=== PATIENT | male | born 1960 | race Caucasian/White ===

== ENCOUNTER 2023-01-22 13:12 | Outpatient (OUT) | payer OTHER, SELFPAY ==
[2023-01-22 13:28] LABS: Estimated GFR (African America >60 (>=60); Estimated GFR (Non-African Ame >60 (>=60)
--- NOTE | 2023-01-22 13:28 | CT_ITS ---
The [address] [address] Patient Name: GABE BELTRE MRN: [id number] date: 1960 Sex: M Assigned Patient Location: CT Current Patient Location: CT Accession/Order Number: [id number] Exam Date: 01/22/2023 13:40 Report Date: 01/22/2023 14:32 At the request of: THOAMS COSTA Procedure: CT chest w con EXAM: CT chest w con HISTORY: Lung Nodule R91.1 COMPARISON: 12/18/2021 TECHNIQUE: Axial CT images were obtained of the chest with intravenous contrast. Multiplanar reconstructions were performed. CHEST FINDINGS: Lungs/Pleura: The lungs are clear. A few punctate pulmonary nodules are present in the left lower lobe which appear stable from the previous exam. No pleural effusion or pneumothorax. Cardiovascular: The heart is normal in size. No coronary artery calcifications identified. The aorta and pulmonary arteries are unremarkable. Pericardium: No effusion. Mediastinum: Unremarkable. Lymph Nodes: No lymph node enlargement by CT size criteria. Bones: No acute osseous abnormality. Multilevel degenerative changes are present with prominent anterior enthesophytes at the mid thoracic spine. Soft tissues: Unremarkable. Upper Abdomen: Prior cholecystectomy. A right renal cyst is noted measuring 3.6 cm. A duodenal diverticulum is present measuring 3.[address]/CT chest w con IMPRESSION: 1. No acute abnormality of the chest. 2. Stable punctate pulmonary nodules. Electronically authenticated by: DOMINIQUE SIERRA Date: 01/22/2023 14:32
== END 2023-01-22 13:13 | disposition home or self-care (01) ==
LOC: CT 13:13
PROVIDERS: PCP Family Medicine; Visit Provider Family Medicine
DX: R91.1 Solitary pulmonary nodule (principal)
CPT/HCPCS: 36415; 71260; 82565; Q9967

== ENCOUNTER 2023-07-31 10:32 | Outpatient (OUT) | payer OTHER, SELFPAY ==
[2023-07-31 11:25] LABS: Estimated Average Glucose 117 mg/dL; Glycohemoglobin A1C 5.7 % (4.5-6.2)
[2023-07-31 12:09] LABS: Prostate Specific Antigen Scrn 1.41 ng/mL (<=4.00)
[2023-07-31 12:13] LABS: Alanine Aminotransferase 28 U/L (16-63); Albumin Globulin Ratio 1.1; Albumin Level 3.8 g/dL (3.4-5.0); Alkaline Phosphatase 75 U/L (46-116); Anion Gap 10.7; Aspartate Amino Transferase 20 U/L (15-37); BUN Creatinine Ratio 12.5; Bilirubin Total 0.7 mg/dL (0.2-1.0); Calcium 9.5 mg/dL (8.5-10.1); Carbon Dioxide 28.2 mmol/L (21.0-32.0); Chloride 104 mmol/L (98-107); Cholesterol 194 mg/dL (<=200); Estimated GFR (African America >60 (>=60); Estimated GFR (Non-African Ame >60 (>=60); Free T3 3.12 pg/mL (2.18-3.98); Globulin 3.4 g/dL; Glucose 103 mg/dL (74-106); HDL Cholesterol 49 mg/dL (40-60); Potassium 3.9 mmol/L (3.5-5.1); Sodium 139 mmol/L (136-145); Thyroid Stimulating Hormone 2.392 uIU/mL (0.358-3.740); Total Protein 7.2 g/dL (6.4-8.2); Triglycerides 125 mg/dL (<=150)
[2023-07-31 13:17] LABS: Basophils Percent Auto 0.5 % (0.2-2.0); Eosinophils Absolute Auto 0.2 10^3/uL (0.0-0.7); Eosinophils Percent Auto 2.6 % (0.9-7.0); Hemoglobin 15.4 g/dL (14.0-18.0); Immature Granulocytes Abs Auto 0.02 10^3/uL (0.00-0.03); Immature Granulocytes Pct Auto 0.2 % (0.0-0.5); Lymphocytes Absolute Auto 2.3 10^3/uL (1.2-3.8); Mean Corpuscular HGB Conc 33.5 g/dL (29.9-35.2); Mean Corpuscular Volume 92.6 fL (80.0-94.0); Mean Platelet Volume 10.6 fL (9.5-13.5); Monocytes Absolute Auto 0.7 10^3/uL (0.3-0.8); Monocytes Percent Auto 7.9 % (1.7-12.0); Neutrophils Absolute Auto 5.2 10^3/uL (1.4-6.5); Neutrophils Percent Auto 61.8 % (43.0-75.0); Platelet Count 258 10^3/uL (150-450); Red Blood Count 4.97 10^6/uL (4.70-6.10); Red Cell Distribution Width 12.4 % (11.0-15.0); White Blood Count 8.5 10^3/uL (4.0-11.0)
[2023-08-01 10:09] LABS: Insulin 8.2 uIU/mL (2.6-24.9)
== END 2023-07-31 10:33 | disposition home or self-care (01) ==
LOC: LAB 10:36
PROVIDERS: PCP Family Medicine; Visit Provider Family Medicine
DX: Z00.00 Encounter for general adult medical examination without abnormal findings (principal); E78.5 Hyperlipidemia, unspecified; R73.09 Other abnormal glucose; Z12.5 Encounter for screening for malignant neoplasm of prostate; Z12.12 Encounter for screening for malignant neoplasm of rectum
CPT/HCPCS: 36415; 80053; 80061; 83036; 83525; 84436; 84443; 84481; 85025; G0103

== ENCOUNTER 2023-08-12 12:56 | Outpatient (OUT) | payer OTHER, SELFPAY ==
--- OUTSIDE RECORDS SUMMARY | 2023-08-12 13:01 | XMS_ITS | CCD ---
Author Organization [facility] Care Team Providers Care Stock Pitcher Name Role Phone DR THOMAS COSTA Consulting Unavailable JULISSA, DR GUZMAN Primary Care Unavailable JULISSA, DR GUZMAN Admitting Unavailable JLUISSA, DR GUZMAN Attending Unavailable JULISSA, DR GUZMAN Consulting Unavailable JULISSA, DR GUZMAN Primary Care Unavailable JULISSA, DR GUZMAN Admitting Unavailable JULISSA, DR GUZMAN Attending Unavailable CATRACHITA, DR RJ Contreras Consulting Unavailable JULISSA, DR GUZMAN Consulting Unavailable JULISSA, DR GUZMAN Primary Care Unavailable JULISSA, DR GUZMAN Admitting Unavailable JULISSA, DR GUZMAN Attending Unavailable Concetta Zelaya Unavailable Allergies Allergy Classification Reported Allergen(s) Allergy Type Date of Onset Reaction(s) Facility (1 source) Penicillins Drug allergy (disorder) 4 [facility] (1 source) Penicillins (Antibiotic) Propensity to adverse reactions [facility] Other Medications Current Medications Medication Drug Class(es) Dates Sig (Normalized) Sig (Original) doxycycline hyclate 100 mg oral tablet (2 sources) Tetracycline-clas s Drug Start: 08-20-2022 take 1 tablet by mouth every twelve hours Doxycycline Hyclate 100 MG 1 tablet Orally Twice a day for 10 day(s) August, Active Start: 02-09-2019 take 1 capsule by [facility] every twelve hours Doxycycline Monohydrate 100 MG 1 capsule Orally every 12 hrs for 10 days Feb, Not-Taking predniSONE 20 mg oral tablet (2 sources) Start: 02-09-2019 take 1 tablet by mouth every twelve hours predniSONE 20 MG 1 tablet Orally bid for 5 day(s) August, Active Completed/Discontinued Medications Medication Drug Class(es) Dates Sig (Normalized) Sig (Original) fluticasone propionate 0.05 mg/actuat metered dose nasal spray (1 source) Corticosteroid Start: 02-09-2019 take 1 spray(s) nasal route once daily Fluticasone Propionate 50 MCG/ACT 1 spray in each nostril Nasally Once a day for 30 day(s) Feb, Not-Taking Problems Problem Classification Problem Date Documented Date Episodic/Chronic Esophageal disorders (1 source) Gastroesophageal reflux disease; Translations: [GERD [Gastroesophageal reflux disease]] Chronic Other lower respiratory disease (4 sources) Solitary pulmonary nodule; Translations: [SOLITARY PULMONARY NODULE] Onset: 12-18-2021 Episodic Other screening for suspected conditions (not mental disorders or infectious disease) (1 source) Encounter for screening for malignant neoplasm of prostate; Translations: [ENC SCREEN MALIG NEOPLASM PROSTATE] Onset: 12-06-2021 Episodic Other upper respiratory infections (1 source) Maxillary sinusitis; Translations: [Chronic maxillary sinusitis] Chronic Other upper respiratory infections (1 source) Acute sinusitis, unspecified Episodic Substance-related disorders (1 source) Nicotine dependence, unspecified, uncomplicated; Translations: [NICOTINE DEPEND UNS UNCOMPLICATED] Onset: 12-23-2021 Chronic Unclassified (1 source) COUGH, UNSPECIFIED; Translations: [COUGH, UNSPECIFIED] Onset: 12-23-2021 Results Test Name Value Interpretation Reference Range Facil ity CT CHEST W CONon 12-18-2021 CT CHEST W CON EXAMINATION: CT CHEST W CON HISTORY: Solitary nodule of lung , cough, smoker COMPARISON: CT chest 12/01/2019 TECHNIQUE: Multi-planar CT images were created with IV contrast. Axial, Coronal, and Sagittal images. Dose reduction techniques were achieved by using automated exposure control and/or adjustment of mA and/or kV according to patient size and/or use of iterative reconstruction technique. FINDINGS: LUNGS: Several 2-5 mm nodules scattered within the lungs, not appreciably changed. No new findings or suspicious nodules. No acute infiltrates. Minimal emphysematous changes. PLEURA: No mass, effusion, or pneumothorax. VASCULATURE: No abnormality. CAREY: No mass or adenopathy. MEDIASTINUM: No mass or adenopathy. CARDIAC: No enlargement, pericardial thickening, or significant calcification. AORTA: No aneurysm or dissection. CHEST WALL: No mass or axillary adenopathy. BONES: No bone lesion or fracture. LIMITED ABDOMEN: Stable benign-appearing right renal cyst. Limited images of the upper abdomen. OTHER: Negative. IMPRESSION: 1. Stable scattered small pulmonary nodules; no overtly suspicious nodules. Consider annual CT chest for surveillance if patient is at increased risk for lung cancer. Electronically authenticated by: RJ ZIJESSEMARCIA Date: 2021-12-18 16:34 Normal [facility] OCC BLD IMMUNO SCREENon 09-0 OCCULT BLOOD Negative Normal NEGATIVE [facility] Comment on above: Performed By: #### O BSCRN #### [facility] [address] [place] [address] Dr. Loraine Bonilla CBC AUTO DIFFon 12-05-2021 BASO # 0.1 103/ul Normal 0.0-0.1 [facility] Comment on above: Performed By: #### C BC #### [facility] [address] [place] [address] Dr. Loraine Bonilla Basophils/100 WBC (Bld) 0.6 % Normal 0.2-2.0 [facility] Comment on above: Performed By: #### C BC #### [facility] [address] [place] [address] Dr. Loraine Bonilla EO # 0.3 103/ul Normal 0.0-0.7 [facility] Comment on above: Performed By: #### C BC #### [facility] [address] [place] [address] Dr. Loraine Bonilla Eosinophils/100 WBC (Bld) 2.7 % Normal 0.9-7.0 [facility] Comment on above: Performed By: #### C BC #### [facility] [address] [place] [address] Dr. Loraine Bonilla Erythrocyte distribution width (RBC) [Ratio] 12.4 % Normal 11.0-15.0 [facility] Comment on above: Performed By: #### C BC #### [facility] [address] [place] [address] Dr. Loraine Bonilla Hematocrit (Bld) [Volume fraction] 47.2 % Normal 42.0-54.0 [facility] Comment on above: Performed By: #### C BC #### [facility] [address] [place] [address] Dr. Loraine Bonilla Hemoglobin (Bld) [Mass/Vol] 15.9 g/dL Normal 14.0-18.0 [facility] Comment on above: Performed By: #### C BC #### [facility] [address] [place] [address] Dr. Loraine Bonilla IG # 0.05 10e3/ul Critically high 0.00-0.03 [facility] Comment on above: Performed By: #### C BC #### [facility] [address] [address] Dr. Loraine Bonilla IG % 0.5 % Normal 0.0-0.5 [facility] Comment on above: Performed By: #### C BC #### [facility] [address] [address] Dr. Loraine Bonilla LYMPH # 2.6 103/ul Normal 1.2-3.8 [facility] Comment on above: Performed By: #### C BC #### [facility] [address] [address] Dr. Loraine Bonilla Lymphocytes/100 WBC (Bld) 23.5 % Normal 20.5-60.0 [facility] Comment on above: Performed By: #### C BC #### [facility] [address] [address] Dr. Loraine Bonilla MANUAL DIFF REQ NO Normal [facility] Comment on above: Performed By: #### C BC #### [facility] [address] [address] Dr. Loraine Bonilla MCH (RBC) [Entitic mass] 30.8 pg Normal 25.9-34.0 [facility] Comment on above: Performed By: #### C BC #### [facility] [address] [address] Dr. Loraine Bonilla MCHC (RBC) [Mass/Vol] 33.7 g/dL Normal 29.9-35.2 [facility] Comment on above: Performed By: #### C BC #### [facility] [address] [place] [address] Dr. Loraine Bonilla MCV (RBC) [Entitic vol] 91.3 fL Normal 80.0-94.0 [facility] Comment on above: Performed By: #### C BC #### [facility] [address] [address] Dr. Loraine Bonilla MONO # 0.9 103/ul Critically high 0.3-0.8 [facility] Comment on above: Performed By: #### C BC #### [facility] [address] [address] Dr. Loraine Bonilla Monocytes/100 WBC (Bld) 7.7 % Normal 1.7-12.0 [facility] Comment on above: Performed By: #### C BC #### [facility] [address] [address] Dr. Loraine Bonilla NEUT # 7.1 103/ul Critically high 1.4-6.5 [facility] Comment on above: Performed By: #### C BC #### [facility] [address] [address] Dr. Loraine Bonilla Neutrophils/100 WBC (Bld) 65.0 % Normal 43.0-75.0 [facility] Comment on above: Performed By: #### C BC #### [facility] [address] [address] Dr. Loraine Bonilla Platelet mean volume (Bld) [Entitic vol] 9.5 fL Normal 9.5-13.5 [facility] Comment on above: Performed By: #### C BC #### [facility] [address] [place] [address] Dr. Loraine Bonilla PLT 256 103/ul Normal 150-450 [facility] Comment on above: Performed By: #### C BC #### [facility] [address] [address] Dr. Loraine Bonilla RBC 5.17 106/ul Normal 4.70-6.10 [facility] Comment on above: Performed By: #### C BC #### [facility] [address] [address] Dr. Loraine Bonilla WBC 11.0 103/ul Normal 4.0-11.0 [facility] Comment on above: Performed By: #### C BC #### [facility] [address] [address] [address] Loraine Bonilla GLYCOHEMOGLOBIN A1Con 2021 ADA RECOMMENDATION SEE BELOW Normal [facility] Comment on above: Result Comment: ADA RECOMMENDED LIMIT 4.0 - 6.0 ADA THERAPEUTIC TARGET < 7.0 ACTION SUGGESTED > 7.0 Performed By: #### A 1C #### [facility] [address] [address] [address] Loraine Bonilla Glucose [Mass/Vol] 114 mg/dL Normal [facility] Comment on above: Performed By: #### A 1C #### [facility] [address] [address] Dr. Loraine Bonilla HbA1c (Bld) [Mass fraction] 5.6 % Normal 4.5-6.2 [facility] Comment on above: Performed By: #### A 1C #### [facility] [address] [place] [address] Dr. Loraine Bonilla LIPID PROFILEon 12-05-2021 CHOL-HDL RATIO NORM SEE BELOW Normal [facility] Comment on above: Result Comment: 3.3 - 4.4 LOW RISK 4.4 - 7.1 AVERAGE RISK 7.1 - 11.0 MODERATE RISK >11.0 HIGH RISK Performed By: #### L IPID, CMP #### [facility] [address] [place] [address] Dr. Loraine Bonilla Cholesterol [Mass/Vol] 202 mg/dL Critically high <=200 [facility] Comment on above: Performed By: #### L IPID, CMP #### [facility] [address] [place] [address] Dr. Loraine Bonilla Cholesterol in HDL [Mass/Vol] 43 mg/dL Normal 40-60 [facility] Comment on above: Performed By: #### L IPID, CMP #### [facility] [address] [place] [address] Dr. Loraine Bonilla Cholesterol in LDL [Mass/Vol] 126.8 mg/dL Normal [facility] Comment on above: Performed By: #### L IPID, CMP #### [facility] [address] [address] [address] Loraine Bonilla Cholesterol.total/Cho lesterol in HDL [Mass ratio] 4.7 {ratio} Normal [facility] Comment on above: Performed By: #### L IPID, CMP #### [facility] [address] [address] [address] Loraine Bonilla HDL NORMAL > or = 60 mg/dl - LOW CARDIOVASCULAR RISK <40 mg/dl - HIGH CARDIOVASCULAR RISK Normal [facility] Comment on above: Performed By: #### L IPID, CMP #### [facility] [address] [address] [address] Loraine Bonilla LDL CALC NORMAL SEE BELOW Normal [facility] Comment on above: Result Comment: <100 mg/dl OPTIMAL 100 - 129 mg/dl NEAR OR ABOVE OPTIMAL 130 - 159 mg/dl BORDERLINE HIGH 160 - 189 mg/dl HIGH >190 mg/dl VERY HIGH Performed By: #### L IPID, CMP #### [facility] [address] [address] Dr. Loraine Bonilla Triglyceride [Mass/Vol] 161 mg/dL Critically high <=150 [facility] Comment on above: Performed By: #### L IPID, CMP #### [facility] [address] [address] Dr. Loraine Bonilla VLDL CALC 32.2 mg/dL Normal [facility] Comment on above: Performed By: #### L IPID, CMP #### [facility] [address] [address] [address] Loraine Bonilla PROF 14(COMP METB)on 022 Albumin [Mass/Vol] 3.8 g/dL Normal 3.4-5.0 [facility] Comment on above: Performed By: #### L IPID, CMP #### [facility] [address] [address] Dr. Loraine Bonilla Albumin/Globulin [Mass ratio] 1.1 {ratio} Normal [facility] Comment on above: Performed By: #### L IPID, CMP #### [facility] [address] [address] [address] Loraine Bonilla ALP [Catalytic activity/Vol] 78 U/L Normal 46-116 [facility] Comment on above: Performed By: #### L IPID, CMP #### [facility] [address] [address] [address] Loraine Bonilla ALT [Catalytic activity/Vol] 21 U/L Normal 16-63 [facility] Comment on above: Performed By: #### L IPID, CMP #### [facility] [address] [address] Dr. Loraine Bonilla Anion gap [Moles/Vol] 13.2 mmol/L Normal [facility] Comment on above: Performed By: #### L IPID, CMP #### [facility] [address] [address] Dr. Loraine Bonilla AST [Catalytic activity/Vol] 16 U/L Normal 15-37 [facility] Comment on above: Performed By: #### L IPID, CMP #### [facility] [address] [address] Dr. Loraine Bonilla Bilirubin [Mass/Vol] 0.4 mg/dL Normal 0.2-1.0 [facility] Comment on above: Performed By: #### L IPID, CMP #### [facility] [address] [address] Dr. Loraine Bonilla Calcium [Mass/Vol] 9.4 mg/dL Normal 8.5-10.1 [facility] Comment on above: Performed By: #### L IPID, CMP #### [facility] [address] [address] Dr. Loraine Bonilla Chloride [Moles/Vol] 104 mmol/L Normal 98-107 [facility] Comment on above: Performed By: #### L IPID, CMP #### [facility] [address] [address] Dr. Loraine Bonilla CO2 [Moles/Vol] 26.6 mmol/L Normal 21.0-32.0 [facility] Comment on above: Performed By: #### L IPID, CMP #### [facility] [address] [address] [address] Loraine Bonilla Creatinine [Mass/Vol] 0.95 mg/dL Normal 0.70-1.30 [facility] Comment on above: Performed By: #### L IPID, CMP #### [facility] [address] [address] [address] Loraine Bonilla EGFR-AF JAMAICAN >60 Normal >=60 [facility] Comment on above: Performed By: #### L IPID, CMP #### [facility] [address] [address] [address] Loraine Bonilla EGFR-NON AF J[place]ICAN >60 Normal >=60 [facility] Comment on above: Performed By: #### L IPID, CMP #### [facility] [address] [address] [address] Loraine Bonilla Globulin (S) [Mass/Vol] 3.5 g/dL Normal [facility] Comment on above: Performed By: #### L IPID, CMP #### [facility] [address] [address] [address] Loraine Bonilla Glucose [Mass/Vol] 107 mg/dL Critically high 74-106 [facility] Comment on above: Performed By: #### L IPID, CMP #### [facility] [address] [address] [address] Loraine Bonilla Potassium [Moles/Vol] 3.8 mmol/L Normal 3.5-5.1 [facility] Comment on above: Performed By: #### L IPID, CMP #### [facility] [address] [address] [address] Loraine Bonilla Protein [Mass/Vol] 7.3 g/dL Normal 6.4-8.[address] [facility] Comment on above: Performed By: #### L IPID, CMP #### [facility] [address] [address] [address] Loraine Bonilla Sodium [Moles/Vol] 140 mmol/L Normal 136-[address] [facility] Comment on above: Performed By: #### L IPID, CMP #### [facility] [address] [place], [place] [address] Dr. Loraine Bonilla Urea nitrogen [Mass/Vol] 15.0 mg/dL Normal 7.0-18.0 [facility] Comment on above: Performed By: #### L IPID, CMP #### [facility] [address] [place], [place] [address] Dr. Loraine Bonilla Urea nitrogen/Creatinine [Mass ratio] 15.8 mg/mg Normal [facility] Comment on above: Performed By: #### L IPID, CMP #### [facility] [address] [place], [place] [address] Dr. Loraine Bonilla Vital Signs Date Time Vital Sign Value Performing Clinician Facility 08-20-2022 13:45-0400 Body height 180.34 cm Concetta Zelaya Other [employer] Other 08-20-2022 13:45-0400 Body mass index (BMI) [Ratio] 32.07 kg/m2 Concetta Zelaya Other [employer] Other 08-20-2022 13:45-0400 Body temperature 97.7 [degF] Concetta Zelaya Other [employer] Other 08-20-2022 13:45-0400 Body weight 104.33 kg Concetta Zelaya Other [employer] Other 08-20-2022 13:45-0400 Respiratory rate 18 /min Concetta Zelaya Other [employer] Other 08-20-2022 13:45-0400 SaO2% (BldA) [Mass fraction] 94 % Concetta Zelaya Other [employer] Other Encounters Encounter Date Encounter Type Care Provider Facility Start: 08-20-2022 End: 08-20-2022 ambulatory Concetta Zelaya Other [employer] [facility] Other Start: 08-20-2022 Office outpatient ne w 20 minutes Concetta Zelaya [facility] Start: 12-18-2021 End: 12-19-[address] THOMAS COSTA Facility:[facility] Start: 12-17-2021 Encounter for genera l adult medical examination without abnormal findings DR THOMAS COSTA [facility] Start: 12-13-2021 End: 12-13-[address] THOMAS COSTA Facility:[facility] Start: 12-13-2021 End: 12-13-2021 Encounter for general adult medical examination without abnormal findings DR THOMAS COSTA Facility:[facility] Start: 12-05-2021 End: 12-06-[address] THOMAS COSTA Facility:[facility] Procedures Date Procedure Procedure Detail Performing Clinician Start: 12-05-[address] KVNG COSTA Comment on above: Performed By: #### P [facility] #### [facility] [address] [address] Dr. Loraine Bonilla Payers Date Payer Category Payer Unknown [id number] [id number] [id number] 1960 Unknown [id number] 2.16.84 [id number] 1960 Unknown [id number] [id number] [id number] 1960 Unknown [id number] Social History Date Type Detail Facility Sex Assigned At [employer] [facility] [employer] Other Evaluation note 08-20-2022 Note Date & Type Note Facility 08-20-2022 Evaluation note Encounter Date Diagnosis Assessment Notes August, Acute sinusitis, recurrence not specified, unspecified location (ICD-10 - J01.90) Sinusitis home care material was printed Drink plenty fluids, get plenty of rest. Take the doxycycline as prescribed until gone. Take the prednisone as prescribed until gone. Continue home medications as prescribed. Take Tylenol or Motrin for aches pains or fevers. Follow-up with your family physician if no improvement in 2 to 3 days [employer] Other History general Narrative - Reported Note Date & Type Note Facility History general Narrative - Reported Type Medical History GERD Surgical History Lap Yumiko 2004 Surgical History Pneumonia Surgical History tonsillectomy and adenoidectomy Surgical History colonoscopy Surgical History EGD Hospitalization History See past surgical hx [employer] Other Summary Purpose Family History No Family History Records Found Advance Directives No Advanced Directives Records Found Additional Source Comments (unrecognized sect ion and content) No Status Records Found INFORMATION SOURCE (unrecogn ized section and content) DATE CREATED AUTHOR 01/06/2022 [facility] REASON FOR VISIT (unrecogniz ed section and content) upper respiratory FOR RECORDS PERTAINING TO PATIENTS WHO ARE OR HAVE BEEN ENROLLED IN A CHEMICAL DEPENDENCY/SUBSTANCEABUSE PROGRAM, SOME INFORMATION MAY BE OMITTED. This clinical summary was aggregated from multiple sources. Caution should be exercised in using it in the provision of clinical care. This summary normalizes information from multiple sources, and as a consequence, information in this document may materially change the coding, format and clinical context of patient data. In addition, data may be omitted in some cases. CLINICAL DECISIONS SHOULD BE BASED ON THE PRIMARY CLINICAL RECORDS. [employer] provides no warranty or guarantee of the accuracy or completeness of information in this document.
--- NOTE | 2023-08-12 13:09 | CT_ITS ---
The [address] [address] Patient Name: GABE BELTRE MRN: [id number] date: 1960 Sex: M Assigned Patient Location: CT Current Patient Location: Accession/Order Number: [id number] Exam Date: 08/12/2023 13:05 Report Date: 08/14/2023 06:04 At the request of: THOMAS COSTA Procedure: CT lung screening low-dose EXAMINATION: CT lung screening low-dose HISTORY: Nicotine Dependence Cigarettes F17.210 COMPARISON: CT chest 01/22/2023, 12/01/2019, 10/28/2018 TECHNIQUE: Axial, Coronal, and Sagittal images were created without the administration of IV contrast material. Dose reduction techniques were achieved by using automated exposure control and/or adjustment of mA and/or kV according to patient size and/or use of iterative reconstruction technique. FINDINGS: LUNGS: No suspicious nodules or infiltrates. Stable, chronic 4 mm nodule versus scarring within right middle lobe. PLEURA: No mass, effusion, or pneumothorax. VASCULATURE: No abnormality. CAREY: No mass or pathologic adenopathy. MEDIASTINUM: No mass or pathologic adenopathy. CARDIAC: No enlargement, pericardial thickening, or pericardial effusion. AORTA: No aneurysm or dissection. CHEST WALL: No mass or axillary adenopathy BONES: No bone lesion or fracture. LIMITED ABDOMEN: No suspicious findings. Limited images of the upper abdomen. OTHER: Negative. CT/CT lung screening low-dose IMPRESSION: 1. Lung-RADS 2- Benign Appearance or Behavior. Nodules with a very low likelihood of becoming a clinically active cancer due to size or lack of growth. Follow-up CT Chest in 1 year. Electronically authenticated by: RJ DOMÍNGUEZ Date: 08/14/2023 06:04
== END 2023-08-12 12:57 | disposition home or self-care (01) ==
LOC: CT 12:56
PROVIDERS: PCP Family Medicine; Visit Provider Family Medicine
DX: F17.210 Nicotine dependence, cigarettes, uncomplicated (principal)
CPT/HCPCS: 71271

== ENCOUNTER 2024-03-23 16:30 | Outpatient (OUT) | payer BC, SELFPAY ==
--- NOTE | 2024-03-23 16:40 | XR_ITS ---
[address] [address] Patient Name: GABE BELTRE MRN: [id number] date: 1960 Sex: M Assigned Patient Location: [facility] Current Patient Location: Accession/Order Number: [id number] Exam Date: 03/23/2024 16:41 Report Date: 03/24/2024 07:58 At the request of: THOMAS COSTA Procedure: XR knee RT 3V PROCEDURE: XR knee RT 3V COMPARISON: None. HISTORY: Knee Osteoarthritis, M17.10 FINDINGS: BONES:No acute fracture or dislocation. Mild degenerative changes with marginal osteophyte formation SOFT TISSUES:Negative. No visible soft tissue swelling. EFFUSION:Small joint effusion OTHER: Negative. XR/XR knee RT 3V IMPRESSION: Mild osteoarthritis with joint effusion Electronically authenticated by: ITALO CRAIG Date: 03/24/2024 07:58
== END 2024-03-23 16:31 | disposition home or self-care (01) ==
LOC: RAD 16:34
PROVIDERS: PCP Family Medicine; Visit Provider Family Medicine
DX: M17.11 Unilateral primary osteoarthritis, right knee (principal); M25.561 Pain in right knee
CPT/HCPCS: 73562

== ENCOUNTER 2024-08-26 12:42 | Outpatient (OUT) | payer MEDICARE, BC, SELFPAY ==
--- OUTSIDE RECORDS SUMMARY | 2024-03-23 11:00 | XMS_ITS ---
Author Organization The [facility] in [place] Address [address] [place] [address] Care Team Providers Care Study Assistant Name Role Phone Ruben Costa Primary Care Provider Allergies Allergen (clinical drug ingredient) Drug/Non Drug Allergy documented on EMR Reaction Allergy Type Onset Date Status Penicillin rash Drug Allergy Active Results Component Value Reference Range Notes XR KNEE RT 3V Reviewed date:03/24/2024 12:18:08 PM Interpretation: Performing Lab: Notes/Report: Source Facility: [place] [address] XRay Report Signed Patient: RAMAKRISHNA ANDINO MR#: [id number] : 1960 Acct:[id number] Age/Sex: 63 / M ADM Date: 03/23/24 Loc: RAD Attending Dr: Thomas Costa M.D. Ordering Physician: Thomas Costa M.D. Date of Service: 03/23/24 Procedure(s): XR knee RT 3V Accession Number(s): [id number] cc: Thomas Costa M.D. [place] [id number] Patient Name: RAMAKRISHNA ANDINO MRN: [id number] date: 1960 Sex: M Assigned Patient Location: RAD Current Patient Location: Accession/Order Number: [id number] Exam Date: 03/23/2024 16:41 Report Date: 03/24/2024 07:58 At the request of: THOMAS COSTA Procedure: XR knee RT 3V PROCEDURE: XR knee RT 3V COMPARISON: None. HISTORY: Knee Osteoarthritis, M17.10 FINDINGS: BONES:No acute fracture or dislocation. Mild degenerative changes with marginal osteophyte formation SOFT TISSUES:Negative. No visible soft tissue swelling. EFFUSION:Small joint effusion OTHER: Negative. XR/XR knee RT 3V IMPRESSION: Mild osteoarthritis with joint effusion Electronically authenticated by: ITALO CRAIG Date: 03/24/2024 07:58 Dictated By: Italo Craig M.D. Signed By: 03/24/24 0800 DD/ 0758 TD/TT: Learning Support Services Director: [place] [address] XRay Report Signed Patient: RAMAKRISHNA ANDINO MR#: [id number] : 1960 Acct:[id number] Age/Sex: 63 / M ADM Date: 03/23/24 Loc: RAD Attending Dr: Thomas Costa M.D. Ordering Physician: Thomas Costa M.D. Date of Service: 03/23/24 Procedure(s): XR knee RT 3V Accession Number(s): [id number] cc: Thomas Costa M.D. [place] [id number] Patient Name: RAMAKRISHNA ANDINO MRN: [id number] date: 1960 Sex: M Assigned Patient Location: [facility] Current Patient Location: Accession/Order Numb er: [id number] Exam Date: 16:41 Report Date: 03/24/2024 07:58 At the request of: THOMAS COSTA Procedure: XR knee RT 3V PROCEDURE: XR knee RT 3V COMPARISON: None. HISTORY: Knee Osteoa rthritis, M17.10 FINDINGS: BONES:No acute fract ure or dislocation. Mild degenerative changes with marginal osteophyte formation SOFT TISSUES:Negativ e. No visible soft tissue swelling. EFFUSION:Small joint effusion OTHER: Negative. X R/XR knee RT 3V IMPRESSION: Mild osteoarthritis with joint effusion Electronically authe nticated by: ITALO CRAIG Date: 03/24/2024 07:58 Dictated By: Italo Craig M.D. Signed By: 03/24/24 0800 DD/ 0758 TD/TT: Learning Support Services Director: REASON FOR VISIT right knee stiffness and pain, some swelling, started last week Medications Medication SIG (Take, Route, Fr equency, Duration) Notes Start Date End Date Status Diclofenac Sodium 75 MG 1 tablet as need ed Orally Twice a day for 30 days 03/23/2024 Active Social History Tobacco Use: Social History Observation Description Date Details (start date - stop date) Current Smoker 07/16/1984 - NA Tobacco Control (Standard) Question Answer Notes Tobacco use: Current smoker When did you start smoking? 07/16/1984 How many cigarettes a day do you smoke? AUDIT-C (Standard) Question Answer Notes Did you have a drink containing alcohol in the p ast year? No Points 0 Interpretation Negative Problems Problem Type SNOMED Code ICD Code Onset Dates Problem Status W/U Status Risk Notes Problem Osteoarthritis of knee (988321607) Knee osteoarthritis (M17.10) Active confirmed Vital Signs Blood pressure systolic 150 mm Hg 03/23/20 24 Blood pressure diastolic 88 mm Hg 024 Height 71 in 03/23/2024 Weight 239.6 lbs 03/23/2024 BMI 33.41 kg/m2 03/23/2024 Encounters Encounter Location Date Provider Diagnosis [facility] [address] [place] [address] 03/23/2024 Ruben Costa Knee osteoarthritis M17.10 Assessments Encounter Date Diagnosis (ICD Code) Assessment Notes Treatment Notes Treatment Clinical Notes Section Notes 03/23/2024 Knee osteoarthritis (ICD-10 - M17.10) Plan Of Treatment Medication Medication Name Sig Start Date Stop Date Notes Diclofenac Sodium 75 MG 1 tablet as need ed Orally Twice a day for 30 days 03/23/2024 Progress Notes * Ramakrishna ANDINO EDOB:1960 ([age] yo M)Acc No.[id number]:03/23/2024 Progress Note Patient: Ramakrishna WEEKS Provider: Shauna Costa (TTC)MD :1960 A ge:63 Y S ex:Male Date:03/23/2024 Address:[address] [place] [address], [facility] Check In:02:38 PM ESTCheck O ut:03:04 PM EST Subjective: * Chief Complaints: * R ight knee stiffness and pain, some swelling, started last week * HPI: G eneral: no trauama - r knee about 2 yearas ago - felt pain then but not felt great sionce then no giving out - no locking. * Active Problem List R91.1 Lung nodule Modified On:12/26/2022/U Status:confirmed Z00.00 Well adult Modified On:07/31/2023W/U Status:confirmed F17.210 Nicotine dependence, cigarettes, uncomplicated Modified On:08/06/2023/U Status:confirmed M17.10 Knee osteoarthritis Modified On:03/23/2024/U Status:confirmed * Medical History: * Surgical History: c yst removal 1979gallbladder removal 2003 * Hospitalization/Major Diagno stic Procedure: N o Hospitalization History. * Family History: F ather: , stroke 1993skin cancer and throat cancercopd, diagnosed with Other malignant neoplasm of unspecified site. M other: , diagnosed with Diabetes mellitus without mention of complication, type II or unspecified type, not stated as uncontrolled. B rother(s): alive. S on(s): alive. 1 brother(s) - healthy. 3 son(s) - healthy. . * Social History: T obacco Use: T obacco Control (Standard) T obacco use: C urrent smoker W hen did you start smoking? 0 07/16/1984 H ow many cigarettes a day do you smoke? 2 1-30 D rug/Alcohol: A WALTER-C (Standard) D id you have a drink containing alcohol in the past year? N o P oints 0 I nterpretation N egative * Medications: N one * Allergies: P enicillin: rash - Allergyno[Allergies Verified] Objective: * Vitals: W t:239.6lbs, Ht: 71 in, BP:150/88mm Hg, BMI:33.41Index, Ht-cm: 180.34 cm, Wt-k.68 kg. * Physical Examination: R knee wiht pain on openinthe medial jpoint space. Assessment: * Assessment: 1. K nee osteoarthritis - M17.10 (Primary) Plan: * Treatment: * Procedure Codes: * Preventive Medicine: Screenings/Counseling: B OR ACTION PLAN Above Normal BMI Follow-up D ietary management education, guidance, and counseling T OBACCO ACTION PLAN Patient counselled on the dangers of tobacco use and urged to quit. . * * Sign off status: Completed Visit Status: C HK (Check Out) true * Provider: Shauna Costa (TTC)MD Date: 1 05/24/2023 Generated for Margy early/Iram/eTransmitting on: 0 08/26/2024 12:44 PM EDT History and Physical Notes * HPI (History of Present Illness) Category Sub-Category Detail Notes Category Not es General no trauama - r knee about 2 yearas ago - felt pain then but not felt great sionce then no giving out - no locking Physical Examination Category Sub-Category Detail Notes Section Note s R knee wiht osvaldo n on openinthe medial jpoint space
--- OUTSIDE RECORDS SUMMARY | 2024-03-24 08:17 | XMS_ITS ---
Author Organization The [facility] in [place] Address [address] [place] [address] Care Team Providers Care Associate Professor Of Counseling Name Role Phone Ruben Mendez Primary Care Provider [phone] REASON FOR VISIT Xray results Encounters Encounter Location Date Provider Diagnosis [facility] [address] [place] [address] 03/24/2024 Ruben Mendez Plan Of Treatment No Information Progress Notes * Ramakrishna ANDINO EDOB:1960 ([age] yo M)Acc No.[id number]:03/24/2024 Patient: Ramakrishna WEEKS :1960 A ge:63 Y S ex:Male Address:[address] [place] [address] * true * Date: Generated for Bridgettei sharath/Fadanielag/eTransmitting on: 0 08/26/2024 12:44 PM EDT
--- OUTSIDE RECORDS SUMMARY | 2024-08-13 05:24 | XMS_ITS ---
Author Organization The [facility] in [place] Address [address] [place] [address] Care Team Providers Care Final Assembly And Packing Supervisor Name Role Phone AndreaRuben Primary Care Provider REASON FOR VISIT due for CT- Encounters Encounter Location Date Provider Diagnosis [facility] [address] [place] [address] 08/13/2024 Ruben Mendez Screening for lung cancer Z12.2 Assessments Encounter Date Diagnosis (ICD Code) Assessment Notes Treatment Notes Treatment Clinical Notes Section Notes 08/13/2024 Screening for lung cancer (ICD-10 - Z12.2) Plan Of Treatment Pending Test Test Name Order Date CT lung screening low-dose 08/13/2024 Progress Notes * Ramakrishna ANDINO EDOB:1960 ([age] yo M)Acc No.[id number]:08/13/2024 Patient: Chris LYNN Ramakrishna Seth :1960 A ge:63 Y S ex:Male Address:[address] [place] [address] Subjective: * Chief Complaints: * d ue for CT- * Medical History: * Surgical History: * Hospitalization/Major Diagno stic Procedure: * Medications: Objective: * Vitals: * Physical Examination: Assessment: * Assessment: 1. S creening for lung cancer - Z12.2 (Primary) Plan: * Treatment: * Procedure Codes: * true * Date: Generated for Printi ng/Faxing/eTransmitting on: 0 08/26/2024 12:44 PM EDT
--- OUTSIDE RECORDS SUMMARY | 2024-08-26 12:45 | XMS_ITS | Patient Health Record ---
Author Organization The [facility] in [place] Address [address] [place] [address] Care Team Providers Care Metallurgy Teacher Name Role Phone Ruben Costa Primary Care Provider [phone] THOMAS COSTA Unavailable [phone] Allergies Allergen (clinical drug ingredient) Drug/Non Drug Allergy documented on EMR Reaction Allergy Type Onset Date Status Penicillin rash Drug Allergy Active Results Component Value Reference Range Notes XR KNEE RT 3V Reviewed date:03/24/2024 12:18:08 PM Interpretation: Performing Lab: Notes/Report: Source Facility: [address] [address] XRay Report Signed Patient: RAMAKRISHNA ANDINO MR#: [id number] : 1960 Acct:[id number] Age/Sex: 63 / M ADM Date: 03/23/24 Loc: RAD Attending Dr: [place] Costa M.D. Ordering Physician: Thomas Costa M.D. Date of Service: 03/23/24 Procedure(s): XR knee RT 3V Accession Number(s): [id number] cc: Thomas Costa M.D. [place] [id number] Patient Name: RAMAKRISHNA ANDINO MRN: [id number] date: 1960 Sex: M Assigned Patient Location: RAD Current Patient Location: Accession/Order Number: [id number] Exam Date: 03/23/2024 16:41 Report Date: 03/24/2024 [...] Signed By: 03/24/24 0800 DD/ 0758 TD/TT: Supervisor Malted Milk: [place] [address] XRay Report Signed Patient: RAMAKRISHNA ANDINO MR#: [id number] : 1960 Acct:[id number] Age/Sex: 63 / M ADM Date: 03/23/24 Loc: RAD Attending Dr: Thomas Costa M.D. Ordering Physician: Thomas Costa M.D. Date of Service: 03/23/24 Procedure(s): XR knee RT 3V Accession Number(s): [id number] cc: Thomas Costa M.D. [place] [id number] Patient Name: RAMAKRISHNA ANDINO MRN: [id number] date: 1960 Sex: M Assigned Patient Location: [facility] Current Patient Location: Accession/Order Numb er: [id number] Exam Date: 16:41 Report Date: 03/24/2024 07:58 [...] Signed By: 03/24/24 0800 DD/ 0758 TD/TT: Supervisor Malted Milk: Reason For Referral No Information Medications Medication SIG (Take, Route, Fr equency, [...] Problem Status W/U Status Risk Notes Problem [id number] Nicotine dependence, cigarettes, uncomplicated (F17.210) Active confirmed Problem Well adult (796316110) Well adult (Z00.00) Active confirmed Problem Lung nodule (R91.1) Active confirmed Problem Osteoarthritis of knee (766090946) Knee osteoarthritis (M17.10) Active confirmed Vital Signs Blood pressure diastolic 88 mm Hg 03/23/2024 Height 71 in 03/23/2024 Blood pressure systolic 150 mm Hg 03/23/2024 Weight 239.6 lbs 03/23/2024 BMI 33.41 kg/m2 03/23/2024 Encounters Encounter Location Date Provider Diagnosis [facility] [address] [place] [address] 09/05/2023 THOMAS COSTA [facility] [address] [place] [address] 03/24/2024 Ruben Costa [facility] [address] [place] [address] 08/13/2024 Ruben Costa Screening for lung cancer Z12.2 [facility] [address] [place] [address] 03/23/2024 Ruben Costa Knee osteoarthritis M17.10 Assessments Encounter Date Diagnosis (ICD Code) Assessment Notes Treatment Notes Treatment Clinical Notes Section Notes 03/23/2024 Knee osteoarthritis (ICD-10 - M17.10) 08/13/2024 Screening for lung cancer (ICD-10 - Z12.2) Plan Of Treatment Pending Test Test Name Order Date CMP (COMPLETE METABOLIC PANEL) 4 HEMOGLOBIN A1C (GLYCO) 07/31/2023 INSULIN, TOTAL 07/31/2023 LIPID PANEL (CHOL/TRIG/HDL/LDL) 07/31/19 24 CBC WITH DIFF 07/31/2023 PSA, PROSTATE-SPECIFIC ANTIGEN 4 CT Chest w/contrast * 12/26/2022 CT Chest Low Dose for Screening* 024 STOOL OCCULT BLOOD 07/31/2023 THYROID PANEL (T4/TSH/FREE T3) 4 CT lung screening low-dose 08/13/2024 Insurance Providers Payer Name Payer Address Payer Phone Subscriber Number Group Number Insured Name Patient Relationship to Insured Coverage Start Date Coverage End Date [facility] [address] [place] [phone] [id number] Ramakrishna Andino Self - patient is the insured Medical (General) History Surgical History Surgery Date(Month/Year) cyst removal 1979 gallbladder removal 2003
--- NOTE | 2024-08-26 12:46 | CT_ITS ---
The [address] [address] Patient Name: GABE BELTRE MRN: [id number] date: 1960 Sex: M Assigned Patient Location: CT Current Patient Location: CT Accession/Order Number: [id number] Exam Date: 08/26/2024 15:04 Report Date: 08/26/2024 15:08 At the request of: THOMAS COSTA MD Procedure: CT lung screening low-dose CT Chest without screening without contrast TECHNIQUE: Axial imaging with 2-D reconstruction. The CT exam was performed using one or more the following dose reduction techniques: Automated exposure control, adjustment of the MA and/or Kv according to patient size, or use of the iterative reconstruction technique. History: Chronic cough. Current smoker COMPARISON: 08/12/2023 THYROID: Unremarkable TRACHEA AND BRONCHI: Patent ESOPHAGUS: Unremarkable. HEART: Within normal limits PERICARDIAL EFFUSION: None CORONARY ARTERY CALCIFICATION: None MEDIASTINUM: No adenopathy. No pneumoperitoneum. No mediastinal hematoma. PULMONARY CAREY: No hilar mass or adenopathy is seen. THORACIC AORTA Unremarkable LUNG NODULE stable chronic 4 mm nodule versus scarring right middle lobe. LUNGS: Lungs are clear PLEURAL EFFUSION: None PNEUMOTHORAX: No pneumothorax seen. CHEST WALL: No abnormality AXILLA:Unremarkable BONY STRUCTURES Intact UPPER ABDOMEN: Images of the upper abdomen are noncontributory. CT/CT lung screening low-dose IMPRESSION: No new or enlarging nodule. Stable 4 mm nodularity of the right middle lobe. FINAL ASSESSMENT: Benign in appearance or behavior. Lung-RADS Version 1.0 Assessment Category: 2 REMARKS: Continued annual screening with LDCT in 12 months is recommended. Impression dictated by: Jose Grady M.D. 08/26/2024 3:08 PM Dictation Location: [employer] Electronically authenticated by: [id number] Y Date: 08/26/2024 15:08
--- OUTSIDE RECORDS SUMMARY | 2024-08-26 12:49 | XMS_ITS | CCD ---
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 Zigzag Name Role Phone JULISSA, DR GUZMAN Consulting Unavailable JULISSA, DR GUZMAN Primary Care Unavailable JULISSA, DR GUZMAN Admitting Unavailable JULISSA, DR GUZMAN Attending Unavailable JULISSA, DR GUZMAN Consulting Unavailable JULISSA, DR GUZMAN Primary Care Unavailable JULISSA, DR GUZMAN Admitting Unavailable JULISSA, DR GUZMAN Attending Unavailable WILBURER, DR RJ Contreras Consulting Unavailable JULISSA, DR GUZMAN Consulting Unavailable JULISSA, DR GUZMAN Primary Care Unavailable JULISSA, DR GUZMAN Admitting Unavailable JULISSA, DR GUZMAN Attending Unavailable Concetta Zelaya Unavailable Allergies Allergy Classification Reported Allergen(s) Allergy Type Date of Onset Reaction(s) Facility (1 source) Penicillins Drug allergy (disorder) 4 [facility] (1 source) Penicillins (Antibiotic) Propensity to adverse reactions [facility] Other Medications Current Medications Medication Drug Class(es) Dates Sig (Normalized) Sig (Original) doxycycline hyclate 100 mg oral tablet (2 sources) Tetracycline-clas s Drug Start: 08-20-2022 take 1 tablet by mouth every twelve hours Doxycycline Hyclate 100 MG 1 tablet Orally Twice a day for 10 day(s) August, Active Start: 02-09-2019 take 1 capsule by [facility] every twelve hours Doxycycline Monohydrate 100 [...] for lung cancer. Electronically authenticated by: RJ DOMÍNGUEZ Date: 2021-12-18 16:34 Normal [facility] OCC BLD IMMUNO SCREENon 09-0 OCCULT BLOOD Negative Normal NEGATIVE [facility] Comment on above: Performed By: #### O BSCRN #### [facility] [address] [place] [address] Dr. Loraine Bonilla CBC AUTO DIFFon 12-05-2021 BASO # 0.1 103/ul Normal 0.0-0.1 [facility] Comment on above: Performed By: #### C BC #### [facility] [address] [place] [address] Dr. Loraine Bonilla Basophils/100 WBC (Bld) 0.6 % Normal 0.2-2.0 [facility] Comment on above: Performed By: #### C BC #### [facility] [address] [place] [address] Dr. Loraine Bonilla EO # 0.3 103/ul Normal 0.0-0.7 [facility] Comment on above: Performed By: #### C BC #### [facility] [address] [place] [address] Dr. Loraine Bonilla Eosinophils/100 WBC (Bld) 2.7 % Normal 0.9-7.0 [facility] Comment on above: Performed By: #### C BC #### [facility] [address] [place] [address] Dr. Loraine Bonilla Erythrocyte distribution width (RBC) [Ratio] 12.4 % Normal 11.0-15.0 [facility] Comment on above: Performed By: #### C BC #### [facility] [address] [place] [address] Dr. Loraine Bonilla Hematocrit (Bld) [Volume fraction] 47.2 % Normal 42.0-54.0 [facility] Comment on above: Performed By: #### C BC #### [facility] [address] [place] [address] Dr. Loraine Bonilla Hemoglobin (Bld) [Mass/Vol] 15.9 g/dL Normal 14.0-18.0 [facility] Comment on above: Performed By: #### C BC #### [facility] [address] [place] [address] Dr. Loraine Bonilla IG # 0.05 10e3/ul Critically high 0.00-0.03 [facility] Comment on above: Performed By: #### C BC #### [facility] [address] [place] [address] Dr. Loraine Bonilla IG % 0.5 % Normal 0.0-0.5 [facility] Comment on above: Performed By: #### C BC #### [facility] [address] [place] [address] Dr. Loraine Bonilla LYMPH # 2.6 103/ul Normal 1.2-3.8 [facility] Comment on above: Performed By: #### C BC #### [facility] [address] [place] [address] Dr. Loraine Bonilla Lymphocytes/100 WBC (Bld) 23.5 % Normal 20.5-60.0 [facility] Comment on above: Performed By: #### C BC #### [facility] [address] [place] [address] Dr. Loraine Bonilla MANUAL DIFF REQ NO Normal [facility] Comment on above: Performed By: #### C BC #### [facility] [address] [place] [address] Dr. Loraine Bonilla MCH (RBC) [Entitic mass] 30.8 pg Normal 25.9-34.0 [facility] Comment on above: Performed By: #### C BC #### [facility] [address] [place] [address] Dr. Loraine Bonilla MCHC (RBC) [Mass/Vol] 33.7 g/dL Normal 29.9-35.2 [facility] Comment on above: Performed By: #### C BC #### [facility] [address] [place] [address] Dr. Loraine Bonilla MCV (RBC) [Entitic vol] 91.3 fL Normal 80.0-94.0 [facility] Comment on above: Performed By: #### C BC #### [facility] [address] [place] [address] Dr. Loraine Bonilla MONO # 0.9 103/ul Critically high 0.3-0.8 [facility] Comment on above: Performed By: #### C BC #### [facility] [address] [place] [address] Dr. Loraine Bonilla Monocytes/100 WBC (Bld) 7.7 % Normal 1.7-12.0 [facility] Comment on above: Performed By: #### C BC #### [facility] [address] [place] [address] Dr. Loraine Bonilla NEUT # 7.1 103/ul Critically high 1.4-6.5 [facility] Comment on above: Performed By: #### C BC #### [facility] [address] [place] [address] Dr. Loraine Bonilla Neutrophils/100 WBC (Bld) 65.0 % Normal 43.0-75.0 [facility] Comment on above: Performed By: #### C BC #### [facility] [address] [place] [address] Dr. Loraine Bonilla Platelet mean volume (Bld) [Entitic vol] 9.5 fL Normal 9.5-13.5 [facility] Comment on above: Performed By: #### C BC #### [facility] [address] [place] [address] Dr. Loraine Bonilla PLT 256 103/ul Normal 150-450 [facility] Comment on above: Performed By: #### C BC #### [facility] [address] [place] [address] Dr. Loraine Bonilla RBC 5.17 106/ul Normal 4.70-6.10 [facility] Comment on above: Performed By: #### C BC #### [facility] [address] [place] [address] Dr. Loraine Bonilla WBC 11.0 103/ul Normal 4.0-11.0 [facility] Comment on above: Performed By: #### C BC #### [facility] [address] [address] [address] Loraine Bonilla GLYCOHEMOGLOBIN A1Con 2021 ADA RECOMMENDATION SEE BELOW Normal [facility] Comment on above: Result Comment: ADA RECOMMENDED LIMIT 4.0 - 6.0 ADA THERAPEUTIC TARGET < 7.0 ACTION SUGGESTED > 7.0 Performed By: #### A 1C #### [facility] [address] [address] [address] Loraine Bonilla Glucose [Mass/Vol] 114 mg/dL Normal [facility] Comment on above: Performed By: #### A 1C #### [facility] [address] [place] [address] Dr. Loraine Bonilla HbA1c (Bld) [Mass fraction] 5.6 % Normal 4.5-6.2 [facility] Comment on above: Performed By: #### A 1C #### [facility] [address] [place] [address] Dr. Loraine Bonilla LIPID PROFILEon 12-05-2021 CHOL-HDL RATIO NORM SEE BELOW Normal [facility] Comment on above: Result Comment: 3.3 - 4.4 LOW RISK 4.4 - 7.1 AVERAGE RISK 7.1 - 11.0 MODERATE RISK >11.0 HIGH RISK Performed By: #### L IPID, CMP #### [facility] [address] [place] [address] Dr. Loraine Bonilla Cholesterol [Mass/Vol] 202 mg/dL Critically high <=200 [facility] Comment on above: Performed By: #### L IPID, CMP #### [facility] [address] [address] [address] Loraine Bonilla Cholesterol in HDL [Mass/Vol] 43 mg/dL Normal 40-60 [facility] Comment on above: Performed By: #### L IPID, CMP #### [facility] [address] [place] [address] Dr. Loraine Bonilla Cholesterol in LDL [Mass/Vol] 126.8 mg/dL Normal [facility] Comment on above: Performed By: #### L IPID, CMP #### [facility] [address] [address] [address] Loraine Bonilla Cholesterol.total/Cho lesterol in HDL [Mass ratio] 4.7 {ratio} Normal [facility] Comment on above: Performed By: #### L IPID, CMP #### [facility] [address] [address] [address] Loraine Bonilla HDL NORMAL > or = 60 mg/dl - LOW CARDIOVASCULAR RISK <40 mg/dl - HIGH CARDIOVASCULAR RISK Normal [facility] Comment on above: Performed By: #### L IPID, CMP #### [facility] [address] [address] [address] Loraine Bonilla LDL CALC NORMAL SEE BELOW Normal [facility] Comment on above: Result Comment: <100 mg/dl OPTIMAL 100 - 129 mg/dl NEAR OR ABOVE OPTIMAL 130 - 159 mg/dl BORDERLINE HIGH 160 - 189 mg/dl HIGH >190 mg/dl VERY HIGH Performed By: #### L IPID, CMP #### [facility] [address] [address] [address] Loraine Bonilla Triglyceride [Mass/Vol] 161 mg/dL Critically high <=150 [facility] Comment on above: Performed By: #### L IPID, CMP #### [facility] [address] [address] [address] Loraine Bonilla VLDL CALC 32.2 mg/dL Normal [facility] Comment on above: Performed By: #### L IPID, CMP #### [facility] [address] [address] [address] Loraine Bonilla PROF 14(COMP METB)on 022 Albumin [Mass/Vol] 3.8 g/dL Normal 3.4-5.0 [facility] Comment on above: Performed By: #### L IPID, CMP #### [facility] [address] [address] [address] Loraine Bonilla Albumin/Globulin [Mass ratio] 1.1 {ratio} Normal [facility] Comment on above: Performed By: #### L IPID, CMP #### [facility] [address] [address] [address] Loraine Bonilla ALP [Catalytic activity/Vol] 78 U/L Normal 46-116 [facility] Comment on above: Performed By: #### L IPID, CMP #### [facility] [address] [address] [address] Loraine Bonilla ALT [Catalytic activity/Vol] 21 U/L Normal 16-63 [facility] Comment on above: Performed By: #### L IPID, CMP #### [facility] [address] [address] [address] Loraine Bonilla Anion gap [Moles/Vol] 13.2 mmol/L Normal [facility] Comment on above: Performed By: #### L IPID, CMP #### [facility] [address] [address] [address] Loraine Bonilla AST [Catalytic activity/Vol] 16 U/L Normal 15-37 [facility] Comment on above: Performed By: #### L IPID, CMP #### [facility] [address] [address] [address] Loraine Bonilla Bilirubin [Mass/Vol] 0.4 mg/dL Normal 0.2-1.0 [facility] Comment on above: Performed By: #### L IPID, CMP #### [facility] [address] [address] [address] Loraine Bonilla Calcium [Mass/Vol] 9.4 mg/dL Normal 8.5-10.1 [facility] Comment on above: Performed By: #### L IPID, CMP #### [facility] [address] [address] [address] Loraine Bonilla Chloride [Moles/Vol] 104 mmol/L Normal 98-107 [facility] Comment on above: Performed By: #### L IPID, CMP #### [facility] [address] [address] [address] Loraine Bonilla CO2 [Moles/Vol] 26.6 mmol/L Normal 21.0-32.0 [facility] Comment on above: Performed By: #### L IPID, CMP #### [facility] [address] [address] [address] Loraine Bonilla Creatinine [Mass/Vol] 0.95 mg/dL Normal 0.70-1.30 [facility] Comment on above: Performed By: #### L IPID, CMP #### [facility] [address] [address] [address] Loraine Bonilla EGFR-AF [place] >60 Normal >=60 [facility] Comment on above: Performed By: #### L IPID, CMP #### [facility] [address] [address] [address] Loraine Bonilla EGFR-NON AF [place] >60 Normal >=60 [facility] Comment on above: Performed By: #### L IPID, CMP #### [facility] [address] [address] [address] Loraine Bonilla Globulin (S) [Mass/Vol] 3.5 g/dL Normal [facility] Comment on above: Performed By: #### L IPID, CMP #### [facility] [address] [address] [address] Loraine Bonilla Glucose [Mass/Vol] 107 mg/dL Critically high 74-106 [facility] Comment on above: Performed By: #### L IPID, CMP #### [facility] [address] [address] [address] Loraine Bonilla Potassium [Moles/Vol] 3.8 mmol/L Normal 3.5-5.1 [facility] Comment on above: Performed By: #### L IPID, CMP #### [facility] [address] [address] [address] Loraine Bonilla Protein [Mass/Vol] 7.3 g/dL Normal 6.4-8.2 [facility] Comment on above: Performed By: #### L IPID, CMP #### [facility] [address] [address] [address] Loraine Bonilla Sodium [Moles/Vol] 140 mmol/L Normal 136-145 [facility] Comment on above: Performed By: #### L IPID, CMP #### [facility] [address] [place], [place] [address] Dr. Loraine Bonilla Urea nitrogen [Mass/Vol] 15.0 mg/dL Normal 7.0-18.0 [facility] Comment on above: Performed By: #### L IPID, CMP #### [facility] [address] [place], [place] [address] Dr. Loraine Bonilla Urea nitrogen/Creatinine [Mass ratio] 15.8 mg/mg Normal [facility] Comment on above: Performed By: #### L IPID, CMP #### [facility] [address] [place], [place] [address] Dr. Loraine Bonilla Vital Signs Date Time Vital Sign Value Performing Clinician Facility 08-20-2022 13:45-0400 Body height 180.34 cm Concetta Zelaya Other [facility] Other 08-20-2022 13:45-0400 Body mass index (BMI) [Ratio] 32.07 kg/m2 Concetta Zelaya Other [facility] Other 08-20-2022 13:45-0400 Body temperature 97.7 [degF] Concetta Zelaya Other [facility] Other 08-20-2022 13:45-0400 Body weight 104.33 kg Concetta Zelaya Other [facility] Other 08-20-2022 13:45-0400 Respiratory rate 18 /min Concetta Zelaya Other [facility] Other 08-20-2022 13:45-0400 SaO2% (BldA) [Mass fraction] 94 % Concetta Zelaya Other [facility] Other Encounters Encounter Date Encounter Type Care Provider Facility Start: 08-20-2022 End: 08-20-2022 ambulatory Concetta Zelaya Other [facility] Other Start: 08-20-2022 Office outpatient ne w 20 minutes Concetta Zelaya [facility] Start: 12-18-2021 End: 12-19-[address] THOMAS COSTA Facility:[facility] Start: 12-17-2021 Encounter for genera l adult medical examination without abnormal findings DR THOMAS COSTA [facility] Start: 12-13-2021 End: 12-13-[address] THOMAS COSTA Facility:[facility] Start: 12-13-2021 End: 12-13-2021 Encounter for general adult medical examination without abnormal findings DR THOMAS COSTA Facility:[facility] Start: 12-05-2021 End: 12-06-[address] THOMAS COSTA Facility:[facility] Procedures Date Procedure Procedure Detail Performing Clinician Start: 12-05-[address] KVNG COSTA Comment on above: Performed By: #### P [facility] #### [facility] [address] [place] [address] Dr. Loraine Bonilla Payers Date Payer Category Payer Unknown [id number] [id number] 1960 Unknown [id number] 1960 Unknown [id number] 1960 Unknown [id number] Social History Date Type Detail Facility Sex Assigned At [employer] [facility] [employer] Other Evaluation note 08-20-2022 Note Date & [...] no improvement in 2 to 3 days [facility] Other History general Narrative - Reported Note Date & Type Note Facility History general Narrative - Reported Type Medical History GERD Surgical History Lap Yumiko 2004 Surgical History Pneumonia Surgical History tonsillectomy and adenoidectomy Surgical History colonoscopy Surgical History EGD Hospitalization History See past surgical hx [facility] Other Summary Purpose Family History No Family History Records Found Advance Directives No Advanced Directives Records Found Additional Source Comments (unrecognized sect ion and content) No Status Records Found INFORMATION SOURCE (unrecogn ized section and content) DATE CREATED AUTHOR 01/06/2022 [facility] REASON FOR VISIT (unrecogniz ed section and [...] BE BASED ON THE PRIMARY CLINICAL RECORDS. [employer] provides no warranty or guarantee of the accuracy or completeness of information in this document.
== END 2024-08-26 12:43 | disposition home or self-care (01) ==
LOC: CT 12:43
PROVIDERS: PCP Family Medicine; Visit Provider Family Medicine
DX: R91.1 Solitary pulmonary nodule (principal); Z12.2 Encounter for screening for malignant neoplasm of respiratory organs; F17.210 Nicotine dependence, cigarettes, uncomplicated
CPT/HCPCS: 71271